=== PATIENT | female | born 1940 | race Caucasian/White ===

== ENCOUNTER → 2016-02-28 | Day surgery (SDC) | payer MEDICARE ==
[~2016-02-28] MED LIST: ASPI81 PO; ATEN1TAB73 PO; BIOT10TA PO; CLOR7.5T3 PO; GABA100C4 PO; GLUC500C56 PO; LACTATED RINGER'S 1,000 ML BAG IV ONE; LASI20TA PO; LISI-357 PO; MELO7.5T PO; ONABOTULINUMTOXINA INJ 100 UNITS/VIAL ONE; PROPOFOL 500 MG/50 ML BTL IV ONE; PROT40TA PO; SODIUM CHLORIDE 0.9% INJ 10 ML ONE; TEMA15CA PO; ULTR50TA PO; VITA400C70 PO
== END | disposition home or self-care (01) ==
LOC: ESDC 09:10
PROVIDERS: ATTEND Internal Medicine Gastroenterology
DX: K57.30 Diverticulosis of large intestine without perforation or abscess without bleeding (principal); K62.1 Rectal polyp; R13.10 Dysphagia, unspecified; K29.70 Gastritis, unspecified, without bleeding; K22.4 Dyskinesia of esophagus
CPT/HCPCS: 00740; 00810; 43236; 43239; 45380; 88305; 88312; J0585; J3010; J7120

== ENCOUNTER → 2017-05-23 | Outpatient (CLI) | payer MEDICARE ==
[~2017-05-23] VITALS: Ht 144.8 cm; Wt 88.0 kg
[~2017-05-23] MED LIST changes: +CHLORHEXIDINE GLUCONATE 2 % 1 PACK (2 CLOTHS) TOPICAL PRN; +FLUMAZENIL 0.5 MG/5 ML VIAL IV PUSH PRN; -LACTATED RINGER'S 1,000 ML BAG IV ONE; +LACTATED RINGER'S 1000 ML IV PRN; +METOPROLOL TARTRATE 25 MG TAB PO PRN; +NALOXONE HCL 0.4 MG/ML AMP IV PUSH PRN; -ONABOTULINUMTOXINA INJ 100 UNITS/VIAL ONE; +POVIDONE IODINE 5% (ANTISEPSIS KIT) 4 APPLICATIONS EACH NARE PRN; -PROPOFOL 500 MG/50 ML BTL IV ONE; +SODIUM CHLORID 0.9% 500 ML IV PRN; -SODIUM CHLORIDE 0.9% INJ 10 ML ONE
[2017-05-23 07:26] VITALS: BP 145/67; PULSE 60; RESP 18; TEMP 98.6; O2SAT 100
== END ==
LOC: HEND 06:33
PROVIDERS: ATTEND Internal Medicine Gastroenterology
DX: R13.10 Dysphagia, unspecified (principal)